=== PATIENT | male | born 1970 | race African-American/Black ===

== ENCOUNTER 2022-10-29 16:03 | Observation (INO) | payer OTHER ==
[2022-10-29 16:13] VITALS: BMI 23.7
[2022-10-29] MEDS ORDERED: ONDANSETRON 4 MG/2 ML VIAL IVPUSH ONE (17:19)
[2022-10-29] MEDS ORDERED: SODIUM CHLORIDE 1,000 ML IV STA (17:19)
[2022-10-29] MEDS ORDERED: ONDANSETRON 4 MG/2 ML VIAL ONE (17:34)
[2022-10-29 18:22] LABS: BASO % 0.7 % (0-2.0); EOS % 1.7 % (0-4.5); HEMATOCRIT 40.6 % (35.4-49); HEMOGLOBIN 13.5 GM/dL (11.7-16.9); LYMPH % 47.7 % (8-40); MCH 29.9 pg (25.7-33.7); MCHC 33.3 g/dl (32.0-35.9); MEAN CELL VOLUME 89.7 fl (80-96); MONO % 7.2 % (3.8-10.2); NEUT % 42.7 % (42.8-82.8); PLATELET COUNT 270 10^3/uL (134-434); RBC 4.53 M/mm3 (4.00-5.60); RDW 14.3 % (11.9-15.9); WHITE BLOOD COUNT 4.9 K/mm3 (4.0-10.0)
[2022-10-29 18:27] LABS: PH,URINE 6.5 (5.0-8.0); URINE APPEARANCE CLEAR; URINE BILIRUBIN NEGATIVE (NEGATIVE); URINE COLOR YELLOW; URINE GLUCOSE (UA) NEGATIVE (NEGATIVE); URINE KETONE NEGATIVE (NEGATIVE); URINE LEUK ESTERASE NEGATIVE (NEGATIVE); URINE NITRITE NEGATIVE (NEGATIVE); URINE PROTEIN NEGATIVE (NEGATIVE); URINE UROBILINOGEN 0.2 mg/dL (0.2-1.0)
[2022-10-29 18:50] LABS: CALCIUM 9.7 mg/dL (8.5-10.1)
[2022-10-29 18:51] LABS: BLOOD UREA NITROGEN 8.3 mg/dL (7-18)
[2022-10-29 18:53] LABS: CREATININE 0.9 mg/dL (0.55-1.3)
[2022-10-29 18:55] LABS: BILIRUBIN,TOTAL 0.2 mg/dL (0.2-1); TOT PROT 8.1 g/dl (6.4-8.2)
[2022-10-30] MEDS ORDERED: LORazepam 1 MG TABLET ONE ×3 (05:15→17:16)
[2022-10-30] MEDS: LORazepam 1 MG TABLET PO SCH ×4 (05:16→23:04)
[2022-10-30 05:48] LABS: COCAINE, UR NEGATIVE (NEGATIVE); OPIATES, URI NEGATIVE (NEGATIVE); PHENCYCLIDINE,URINE NEGATIVE (NEGATIVE); URINE AMPHETAMINES NEGATIVE (NEGATIVE); URINE BARBITURATES NEGATIVE (NEGATIVE)
[2022-10-30 06:18] LABS: METHADONE, UR NEGATIVE (NEGATIVE); URINE BENZODIAZEPINES NEGATIVE (NEGATIVE)
[2022-10-30 06:44] LABS: BASO % 1.1 % (0-2.0); EOS % 2.4 % (0-4.5); HEMATOCRIT 36.6 % (35.4-49); HEMOGLOBIN 12.6 GM/dL (11.7-16.9); LYMPH % 52.6 % (8-40); MCH 30.9 pg (25.7-33.7); MCHC 34.4 g/dl (32.0-35.9); MEAN PLT VOLUME 8.6 fl (7.5-11.1); MONO % 9.9 % (3.8-10.2); PLATELET COUNT 224 10^3/uL (134-434); RBC 4.07 M/mm3 (4.00-5.60); RDW 14.5 % (11.9-15.9); WHITE BLOOD COUNT 4.2 K/mm3 (4.0-10.0)
[2022-10-30 07:14] LABS: BLOOD UREA NITROGEN 9.2 mg/dL (7-18); CALCIUM 8.5 mg/dL (8.5-10.1)
[2022-10-30 07:15] LABS: ALBUMIN 3.6 g/dl (3.4-5.0); MAGNESIUM 1.8 mg/dL (1.8-2.4)
[2022-10-30 07:18] LABS: CREATININE 1.1 mg/dL (0.55-1.3); PHOSPHOROUS 3.1 mg/dL (2.5-4.9)
[2022-10-30 07:19] LABS: BILIRUBIN,TOTAL 0.5 mg/dL (0.2-1)
[2022-10-30] MEDS ORDERED: ENOXAPARIN NA (PORCINE) 40 MG/0.4 ML DISP.SYRIN SQ ONE (08:44)
[2022-10-30] MEDS ORDERED: PANTOPRAZOLE 40 MG TABLET PO ONE (08:44)
[2022-10-30] MEDS ORDERED: levETIRAcetam 500 MG TABLET (FP) PO ONE (08:44)
[2022-10-30] MEDS: ENOXAPARIN NA (PORCINE) 40 MG/0.4 ML DISP.SYRIN SQ SCH (08:49)
[2022-10-30] MEDS: levETIRAcetam 500 MG TABLET (FP) PO SCH ×2 (08:49→22:27)
[2022-10-30] MEDS: PANTOPRAZOLE 40 MG TABLET PO SCH (08:49)
[2022-10-30] MEDS ORDERED: ACETAMINOPHEN 325 MG TABLET (FP) PO ONE (12:13)
[2022-10-30] MEDS ORDERED: ACETAMINOPHEN 325 MG TABLET (FP) ONE (12:19)
[2022-10-31] MEDS: LORazepam 1 MG TABLET PO SCH ×2 (05:29→10:35)
[2022-10-31 05:48] VITALS: RESP 20
[2022-10-31 07:13] LABS: BASO % 0.7 % (0-2.0); EOS % 1.7 % (0-4.5); HEMOGLOBIN 12.9 GM/dL (11.7-16.9); LYMPH % 40.8 % (8-40); MEAN CELL VOLUME 91.2 fl (80-96); MEAN PLT VOLUME 8.4 fl (7.5-11.1); MONO % 9.8 % (3.8-10.2); PLATELET COUNT 218 10^3/uL (134-434); RBC 4.17 M/mm3 (4.00-5.60); RDW 14.4 % (11.9-15.9); WHITE BLOOD COUNT 4.8 K/mm3 (4.0-10.0)
[2022-10-31 08:03] LABS: CALCIUM 8.8 mg/dL (8.5-10.1)
[2022-10-31 08:04] LABS: ALBUMIN 3.4 g/dl (3.4-5.0); BLOOD UREA NITROGEN 9.6 mg/dL (7-18)
[2022-10-31 08:08] LABS: BILIRUBIN,TOTAL 0.5 mg/dL (0.2-1)
[2022-10-31 08:09] LABS: TOT PROT 6.9 g/dl (6.4-8.2)
[2022-10-31 08:31] VITALS: BP 136/70; PULSE 80; TEMP 98
[2022-10-31] MEDS: PANTOPRAZOLE 40 MG TABLET PO SCH (09:37)
[2022-10-31] MEDS: ENOXAPARIN NA (PORCINE) 40 MG/0.4 ML DISP.SYRIN SQ SCH (09:37)
[2022-10-31] MEDS: levETIRAcetam 500 MG TABLET (FP) PO SCH (09:37)
[2022-11-01] MEDS ORDERED: LORazepam 0.5 MG TABLET PO SCH (05:00)
[2022-11-02] MEDS ORDERED: LORazepam 0.5 MG TABLET PO ONE (05:00)
== END 2022-10-31 14:56 | disposition home or self-care (01) ==
LOC: JER 16:03 → JERBED 21:47 → J4W 10-30 21:50
PROVIDERS: ADMIT Internal Medicine; ATTEND Internal Medicine
PROC: 3E023GC Introduction of Other Therapeutic Substance into Muscle, Percutaneous Approach (ICD-10-PCS; principal; 2022-10-29)
PROC: 3E033GC Introduction of Other Therapeutic Substance into Peripheral Vein, Percutaneous Approach (ICD-10-PCS; 2022-10-29)
PROC: 3E0337Z Introduction of Electrolytic and Water Balance Substance into Peripheral Vein, Percutaneous Approach (ICD-10-PCS; 2022-10-29)
DX: F10.239 Alcohol dependence with withdrawal, unspecified (principal); E86.1 Hypovolemia; K52.9 Noninfective gastroenteritis and colitis, unspecified; R56.9 Unspecified convulsions; Z29.8 Encounter for other specified prophylactic measures; D64.9 Anemia, unspecified
CPT/HCPCS: 0241U-QW; 36415; 70450-TC; 71046-TC-FY; 80053; 80061; 80307; 81003; 82375; 82962; 83690; 83735; 84100; 84439; 84443; 84484; 85025; 87086; 93005; 93010; 93306-TC; 93880-TC; 96372; 96374; 99285-25; G0378